=== PATIENT | female | born 1975 | race Caucasian/White ===

== ENCOUNTER 2016-09-08 15:05 | Emergency (ER) | payer MEDICARE, OTHER ==
--- NOTE | 2016-09-08 15:43 | ED ---
Head Injury HPI - General Chief complaint: Head Injury Stated complaint: Fall-Head Injury Time Seen by Provider: 09/08/16 15:16 Source: EMS, RN notes reviewed, old records reviewed Mode of arrival: EMS Limitations: physical limitation - History of Present Illness Initial comments: Physical 41-year-old female presenting to the emergency room chief complaint of tripping over a cement block and falling backwards and hitting her head. Patient reports she noticed from the back of her skull. 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 She reports that she has no headache or any pain at this time. She reports that she does have some chronic contractions in her hands and feet and does have some chronic weakness in her lower extremities bilaterally. She also reports that she does have a history of retinal problems and heart arrhythmias. Patient denies any chest pain or any other symptoms besides the 1 out of 10 pain over the back of her head. She reports the swelling has diminished after putting ice on it. She denies any neck pain. - Related Data Home Medications Medication Instructions Recorded Confirmed Methylphenidate HCl [Ritalin] 20 mg PO BID 09/08/16 09/08/16 Multivitamins, Thera [Multivitamin 1 tab PO DAILY 09/08/16 09/08/16 (formulary)] Nordette 1 tab PO DAILY 09/08/16 09/08/16 Allergies/Adverse reactions: Allergies Allergy/AdvReac Type Severity Reaction Status Date / Time thurman Allergy Rash/Hives Verified 09/08/16 15:21 strawberry Allergy Rash/Hives Verified 09/08/16 15:21 tomato Allergy Rash/Hives Verified 09/08/16 15:21 Review of Systems ROS Statement: Those systems with pertinent positive or pertinent negative responses have been documented in the HPI. ROS Other: All systems not noted in ROS Statement are negative. Past Medical History Additional Past Medical History / Comment(s): Myotonic Dystrophy Type I History of Any Multi-Drug Resistant Organisms: None Reported Past Surgical History: No Surgical Hx Reported Past Psychological History: ADD/ADHD Smoking Status: Never smoker Past Alcohol Use History: None Reported Past Drug Use History: None Reported General Exam - General Exam Comments Initial Comments: Pleasant 41-year-old female. No acute distress. Limitations: physical limitation General appearance: alert, in no apparent distress Head exam: Present: normocephalic, normal inspection. Absent: atraumatic ( Patient has posterior hematoma measuring 4cm ) Eye exam: Present: normal appearance, PERRL, EOMI. Absent: scleral icterus, conjunctival injection, periorbital swelling ENT exam: Present: normal exam, mucous membranes moist Neck exam: Present: normal inspection. Absent: tenderness, meningismus, lymphadenopathy Respiratory exam: Present: normal lung sounds bilaterally. Absent: respiratory distress, wheezes, rales, rhonchi, stridor Cardiovascular Exam: Present: regular rate, normal rhythm, normal heart sounds. Absent: systolic murmur, diastolic murmur, rubs, gallop, clicks GI/Abdominal exam: Present: soft, normal bowel sounds. Absent: distended, tenderness, guarding, rebound, rigid Extremities exam: Present: normal inspection, full ROM, normal capillary refill , other (Pt has chronic myotonic contractions with purposeful movement ). Absent: tenderness, pedal edema, joint swelling, calf tenderness Back exam: Present: normal inspection Neurological exam: Present: alert, oriented X3, CN II-XII intact Psychiatric exam: Present: normal affect Skin exam: Present: warm, dry, intact, normal color. Absent: rash Course Vital Signs 09/08/16 15:13 Temperature 98.8 F Pulse Rate 85 Respiratory 16 Rate Blood Pressure 132/78 O2 Sat by Pulse 96 Oximetry Medical Decision Making - Medical Decision Making Physical 41-year-old female presenting to the emergency room chief complaint of tripping over a cement block and falling backwards and hitting her head. Patient reports she noticed from the back of her skull. 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 She reports that she has no headache or any pain at this time. Patient reports pain over the back of her head is a 1 out of 10. Patient does have some significant hematoma over the back of her skull. No significant bleeding noted. Denies any neck pain. She states that she has no new neurological symptoms. She does have some contractures in her upper extremities with purposeful movement and continuous bilateral lower term any weakness. She reports that nothing is changed. She received a CT of her brain which revealed no evidence of any acute abnormalities besides sphenoid sinusitis. Patient was informed of this. Discussed monitoring for any fevers or any other symptoms and taking decongestant medication. Patient agrees to treatment plan will be educated on head injury instructions. Patient understands treatment plan and return parameters were discussed. - Radiology Data Radiology results: report reviewed CT brain showed no evidence of any acute [place] maladies. Evidence of mild sphenoid sinusitis. Disposition Clinical Impression: Minor head injury without loss of consciousness, Contusion of scalp Disposition: HOME SELF-CARE Condition: Good Instructions: Head Injury (ED) Additional Instructions: Patient advised to continue to put ice over the back the skull. Monitor for any abnormal signs of behavior and return to the emergency department once. Patient can take Tylenol for pain. Return to the emergency department if any alarming signs or symptoms occur. Referrals: Prashant Levine MD [Primary Care Provider] - 1-2 days Time of Disposition: 16:03
--- NOTE | 2016-09-08 15:56 | CT ---
EXAMINATION TYPE: CT brain wo con DATE OF EXAM: 09/08/2016 COMPARISON: NONE HISTORY: Patient fell and hit back of head. Patient complains of posterior headache and exhibits diz ziness. CT DLP: 721.8 mGycm. Automated Exposure Control for Dose Reduction was Utilized. TECHNIQUE: CT scan of the head is performed without contrast. FINDINGS: Ventricles of normal size. There is no mass effect nor midline shift. There is no evidence of intracranial hemorrhage. The calvarium is intact. There is fluid level in the right sphenoid sinus . IMPRESSION: No intracranial abnormality. Sphenoid sinusitis..
[2016-09-08 16:05] VITALS: BP 132/78; PULSE 85; RESP 16; TEMP 98.8
== END 2016-09-08 16:32 | disposition home or self-care (01) ==
LOC: EC 15:05
DX: S00.03XA Contusion of scalp, initial encounter (principal); J32.3 Chronic sphenoidal sinusitis; Z79.3 Long term (current) use of hormonal contraceptives; Z79.899 Other long term (current) drug therapy; Z91.018 Allergy to other foods; W01.198A Fall on same level from slipping, tripping and stumbling with subsequent striking against other object, initial encounter
CPT/HCPCS: 70450; 99284